=== PATIENT | female | born 1985 | race Caucasian/White ===

== ENCOUNTER 2018-11-10 18:45 | Inpatient (IN) ==
--- NOTE | 2018-11-10 19:52 | Emergency Department Note ---
Disposition Clinical Impression: Suicidal ideation UTI (urinary tract infection) Qualifiers: Urinary tract infection type: acute cystitis Hematuria presence: without he maturia Qualified Code(s): N30.00 - Acute cystitis without hematuria Depression Qualifiers: Depression Type: unspecified Qualified Code(s): F32.9 - Major depressive disorder, single episode, unspecified Disposition: Still a Patient Referrals: NONE,PCP [Primary Care Provider] - Forms: ED Satisfaction Letter Time of Disposition: 21:25 General Adult HPI - General Chief complaint: ED Psychiatric Symptoms Stated complaint: Anxiety,depression Time Seen by Provider: 11/10/18 19:00 Source: patient Limitations: no limitations Nursing Notes Reviewed: Yes Vital Signs Reviewed: Yes - History of Present Illness HPI Narrative: 33 yo female presents to the emergency department after being dropped off by her boyfriend with a chief complaint of anxiety and depression. Patient states that she relapsed on cocaine and alcohol earlier this week. She also states that she stopped taking her psych medications. She does have waves to obtain her psych medications she just did not have them filled. She states the last time that she used cocaine was yesterday and the last time she had anything to drink was several hours ago. She has been harming herself by cutting her left forearm and has felt suicidal at times. She has no clear-cut plan but states that she sometimes thinks about cutting her wrist or taking her pills to end her life. She does not have any homicidal ideations. She thinks that she has had some hallucinations both while doing cocaine and whenever she is off her psych medications but she is unsure. She denies any symptoms of recent illnesses and wants help getting back on track with her psych medications. Pain Scale: 0 - Related Data Home Medications Medication Instructions Recorded Confirmed Buprenorphine HCl/Naloxone HCl 1 each SL BID 11/10/18 11/10/18 [Suboxone 8 mg-2 mg Sl Film] Buspirone HCl [Buspar] 10 mg PO BID 11/10/18 11/10/18 Escitalopram [Lexapro] 20 mg PO DAILY 11/10/18 11/10/18 Gabapentin [Neurontin] 300 mg PO TID 11/10/18 11/10/18 HydrOXYzine 5 mg PO HS 11/10/18 11/10/18 Allergies Allergy/AdvReac Type Severity Reaction Status Date / Time No Known Allergies Allergy Verified 06/04/18 17:35 All systems ED: reviewed and negative except as stated. Review of Systems: As Per HPI Constitutional: Denies: fever, chills, weakness Cardiovascular: Denies: chest pain, palpitations, dyspnea on exertion Respiratory: Denies: cough, dyspnea, wheezes Gastrointestinal: Denies: abdominal pain, nausea, vomiting, diarrhea Genitourinary: Denies: dysuria, hematuria Musculoskeletal: Denies: back pain Integumentary: Denies: rash Psychiatric: Reports: anxiety, depression, suicidal thoughts Endocrine: Reports: fatigue Past Medical History - Past Medical History Medical history: Reports: no medical history Psychiatric history: Reports: bipolar, depression - Social History Smoking Status: Current every day smoker Smokeless Tobacco Status: No Alcohol use: Reports: occasionally, recent Drug use: Reports: cocaine Physical Exam - General Limitations: no limitations General appearance: appears intoxicated, anxious, other (tearful during exam) - Head Head exam: atraumatic, normocephalic - Eye Eye exam: Present: EOMI, miosis - ENT ENT exam: normal exam, mucous membranes moist - Neck Neck exam: Present: normal inspection. Absent: tenderness, lymphadenopathy - Chest Chest inspection: Present: normal inspection. Absent: tenderness - Respiratory Respiratory exam: Present: normal lung sounds bilaterally - Cardiovascular Cardiovascular exam: Present: normal rhythm, tachycardia - Abdominal Exam Abdominal exam: Present: soft, Non-Tender. Absent: distention, guarding, rebound, rigidity - Neurological Exam Neurological exam: Present: alert, oriented X3 - Psychiatric Psychiatric exam: Present: depressed, agitated, suicidal ideation - Skin Skin exam: Present: warm, dry, other (linear shallow cuts on left upper extremities) Course Vital Signs Temperature 97.9 F 11/10/18 18:49 Pulse Rate 109 11/10/18 18:49 Respiratory Rate 22 11/10/18 18:49 Blood Pressure 139/77 11/10/18 18:49 O2 Sat by Pulse Oximetry 100 11/10/18 18:49 Temperature 97.9 F 11/10/18 19:11 Pulse Rate 109 11/10/18 19:11 Respiratory Rate 22 11/10/18 19:11 Blood Pressure 139/77 11/10/18 19:11 O2 Sat by Pulse Oximetry 100 11/10/18 19:11 Oxygen Delivery Oxygen Delivery Room Air Medical Decision Making - MDM Narrative Medical decision making narrative: Pt presents in an obviously intoxicated state, tearful, stating she wants help getting back on track for her psych meds. We will obtain psych clearance labs and once sober, call 1A for evaluation. Pt labwork demonstrates mild alcohol intoxication and was positive for cocaine. Her urine was positive for bacteria and nitrites, therefore we will give her a dose of keflex. 1A has been called. She will be signed out to Dr. Shah for completion of her care. - Medical Records Medical records reviewed: Yes I reviewed the patient's medical records. - Lab Data Lab results reviewed: Yes I reviewed the patient's lab results. Result diagrams: 11/10/18 20:06 11/10/18 20:06 Lab Results 11/10/18 11/10/18 11/10/18 Range/Units 19:00 19:37 19:37 WBC (4.3-11.1) K/mcL RBC (3.82-4.97) M/mcL Hgb (11.5-15.4) g/dL Hct (35.3-44.9) % MCV (83.0-100.0) fL MCH (28.0-33.3) pg MCHC (31.6-35.5) g/dL RDW (11.5-14.5) % Plt Count (140-400) K/mcL MPV (9.4-12.4) fL Immature Gran % (0-4) % Seg Neutrophils % % Lymphocytes % % Monocytes % % Eosinophils % % Basophils % % Neutrophils # (1.6-8.9) K/mcL Lymphocytes # (0.6-4.6) K/mcL Monocytes # (0.0-1.3) K/mcL Eosinophils # (0.0-0.6) K/mcL Basophils # (0.0-0.2) K/mcL Sodium (136-145) mEq/L Potassium (3.5-5.1) mEq/L Chloride (98-107) mEq/L Carbon Dioxide (23-29) mEq/L BUN (6-20) mg/dL Creatinine (0.60-1.20) mg/dL Est GFR ( Amer) (> 60) Est GFR (Non-Af Amer) (> 60) BUN/Creatinine Ratio (6-26) Glucose (70-105) mg/dL Calculated Osmolality (280-300) Calcium (8.6-10.3) mg/dL Urine Color Yellow (Yellow) Urine Clarity Cloudy A (Clear) Urine pH 5.5 (5.0-8.0) pH Units Ur Specific [place] 1.014 (1.010-1.025) Urine Protein Negative (Neg-Trace) mg/dL Urine Glucose (UA) Normal (Normal) mg/dL Urine Ketones Negative (Negative) mg/dL Urine Blood Negative (Negative) Urine Nitrite Positive A (Negative) Urine Bilirubin Negative (Negative) Urine Urobilinogen Normal (Normal) mg/dL Ur Leukocyte Esterase Negative (Negative) Urine Microscopic RBC 0-3 (0-3) per hpf Urine Microscopic WBC 0-3 (0-3) per hpf Ur Squamous Epith Cells Moderate H (None-Few) per lpf Urine Bacteria Moderate H (None-Few) per hpf Hyaline Casts None Seen (None-Few) per lpf Urine Test Negative (Negative) Salicylates (15.0-30.0) mg/dL Urine Opiates Screen Negative (Cnodlr=935) ng/mL Acetaminophen (10-20) mcg/mL Ur Barbiturates Screen Negative (Kbwodx=372) ng/mL Ur Phencyclidine Scrn Negative (Cutoff=25) ng/mL Ur Amphetamines Screen Negative (Vrbjui=0580) ng/mL U Benzodiazepines Scrn Negative (Hcsuwa=568) ng/mL Urine Cocaine Screen Positive H (Cutoff= 300) ng/mL U Marijuana (THC) Screen Negative (Cutoff = 50) ng/mL Ur Drug Screen Interp See Below Ethyl Alcohol (Less than 10) mg/dL 11/10/18 11/10/18 Range/Units 20:06 20:06 WBC 8.7 (4.3-11.1) K/mcL RBC 4.25 (3.82-4.97) M/mcL Hgb 13.2 (11.5-15.4) g/dL Hct 38.5 (35.3-44.9) % MCV 90.6 (83.0-100.0) fL MCH 31.1 (28.0-33.3) pg MCHC 34.3 (31.6-35.5) g/dL RDW 12.4 (11.5-14.5) % Plt Count 284 (140-400) K/mcL MPV 9.3 L (9.4-12.4) fL Immature Gran % 0.2 (0-4) % Seg Neutrophils % 53.4 % Lymphocytes % 33.0 % Monocytes % 10.1 % Eosinophils % 2.8 % Basophils % 0.5 % Neutrophils # 4.7 (1.6-8.9) K/mcL Lymphocytes # 2.9 (0.6-4.6) K/mcL Monocytes # 0.9 (0.0-1.3) K/mcL Eosinophils # 0.2 (0.0-0.6) K/mcL Basophils # 0.0 (0.0-0.2) K/mcL Sodium 140 (136-145) mEq/L Potassium 3.5 (3.5-5.1) mEq/L Chloride 107 (98-107) mEq/L Carbon Dioxide 24 (23-29) mEq/L BUN 15 (6-20) mg/dL Creatinine 0.60 (0.60-1.20) mg/dL Est GFR ( Amer) > 60 (> 60) Est GFR (Non-Af Amer) > 60 (> 60) BUN/Creatinine Ratio 25 (6-26) Glucose 83 (70-105) mg/dL Calculated Osmolality 290 (280-300) Calcium 9.1 (8.6-10.3) mg/dL Urine Color (Yellow) Urine Clarity (Clear) Urine pH (5.0-8.0) pH Units Ur Specific [place] (1.010-1.025) Urine Protein (Neg-Trace) mg/dL Urine Glucose (UA) (Normal) mg/dL Urine Ketones (Negative) mg/dL Urine Blood (Negative) Urine Nitrite (Negative) Urine Bilirubin (Negative) Urine Urobilinogen (Normal) mg/dL Ur Leukocyte Esterase (Negative) Urine Microscopic RBC (0-3) per hpf Urine Microscopic WBC (0-3) per hpf Ur Squamous Epith Cells (None-Few) per lpf Urine Bacteria (None-Few) per hpf Hyaline Casts (None-Few) per lpf Urine Test (Negative) Salicylates < 2.5 L (15.0-30.0) mg/dL Urine Opiates Screen (Imxxcz=994) ng/mL Acetaminophen < 10 L (10-20) mcg/mL Ur Barbiturates Screen (Rwylgk=789) ng/mL Ur Phencyclidine Scrn (Cutoff=25) ng/mL Ur Amphetamines Screen (Thtxmq=1379) ng/mL U Benzodiazepines Scrn (Dslrcw=473) ng/mL Urine Cocaine Screen (Cutoff= 300) ng/mL U Marijuana (THC) Screen (Cutoff = 50) ng/mL Ur Drug Screen Interp Ethyl Alcohol 32 H (Less than 10) mg/dL
--- NOTE | 2018-11-10 20:08 | Emergency Department Note ---
Disposition Clinical Impression: Suicidal ideation UTI (urinary tract infection) Qualifiers: Urinary tract infection type: acute cystitis Hematuria presence: without he maturia Qualified Code(s): N30.00 - Acute cystitis without hematuria Depression Qualifiers: Depression Type: unspecified Qualified Code(s): F32.9 - Major depressive disorder, single episode, unspecified Disposition: Admitted As Inpatient Condition: Fair Referrals: NONE,PCP [Primary Care Provider] - Forms: ED Satisfaction Letter General Adult HPI - General Chief complaint: ED Psychiatric Symptoms Stated complaint: Anxiety,depression Time Seen by Provider: 11/10/18 19:00 Source: patient Limitations: no limitations - History of Present Illness Pain Scale: 0 - Related Data Home Medications Medication Instructions Recorded Confirmed Buprenorphine HCl/Naloxone HCl 1 each SL BID 11/10/18 11/10/18 [Suboxone 8 mg-2 mg Sl Film] Buspirone HCl [Buspar] 10 mg PO BID 11/10/18 11/10/18 Escitalopram [Lexapro] 20 mg PO DAILY 11/10/18 11/10/18 Gabapentin [Neurontin] 300 mg PO TID 11/10/18 11/10/18 HydrOXYzine 5 mg PO HS 11/10/18 11/10/18 Allergies Allergy/AdvReac Type Severity Reaction Status Date / Time No Known Allergies Allergy Verified 06/04/18 17:35 Constitutional: Denies: fever, chills, weakness Cardiovascular: Denies: chest pain, palpitations, dyspnea on exertion Respiratory: Denies: cough, dyspnea, wheezes Gastrointestinal: Denies: abdominal pain, nausea, vomiting, diarrhea Genitourinary: Denies: dysuria, hematuria Musculoskeletal: Denies: back pain Integumentary: Denies: rash Psychiatric: Reports: anxiety, depression, suicidal thoughts Endocrine: Reports: fatigue Past Medical History - Past Medical History Medical history: Reports: no medical history Psychiatric history: Reports: bipolar, depression - Social History Smoking Status: Current every day smoker Smokeless Tobacco Status: No Alcohol use: Reports: occasionally, recent Drug use: Reports: cocaine Physical Exam - General Limitations: no limitations General appearance: appears intoxicated, anxious, other (tearful during exam) Course Vital Signs Temperature 97.9 F 11/10/18 18:49 Pulse Rate 109 11/10/18 18:49 Respiratory Rate 22 11/10/18 18:49 Blood Pressure 139/77 11/10/18 18:49 O2 Sat by Pulse Oximetry 100 11/10/18 18:49 Temperature 97.9 F 11/10/18 19:11 Pulse Rate 73 11/10/18 23:01 Respiratory Rate 16 11/10/18 23:01 Blood Pressure 99/65 11/10/18 23:01 O2 Sat by Pulse Oximetry 98 11/10/18 23:01 Oxygen Delivery Oxygen Delivery Room Air Medical Decision Making - Lab Data Result diagrams: 11/10/18 20:06 11/10/18 20:06 Lab Results 11/10/18 11/10/18 11/10/18 Range/Units 19:00 19:37 19:37 WBC (4.3-11.1) K/mcL RBC (3.82-4.97) M/mcL Hgb (11.5-15.4) g/dL Hct (35.3-44.9) % MCV (83.0-100.0) fL MCH (28.0-33.3) pg MCHC (31.6-35.5) g/dL RDW (11.5-14.5) % Plt Count (140-400) K/mcL MPV (9.4-12.4) fL Immature Gran % (0-4) % Seg Neutrophils % % Lymphocytes % % Monocytes % % Eosinophils % % Basophils % % Neutrophils # (1.6-8.9) K/mcL Lymphocytes # (0.6-4.6) K/mcL Monocytes # (0.0-1.3) K/mcL Eosinophils # (0.0-0.6) K/mcL Basophils # (0.0-0.2) K/mcL Sodium (136-145) mEq/L Potassium (3.5-5.1) mEq/L Chloride (98-107) mEq/L Carbon Dioxide (23-29) mEq/L BUN (6-20) mg/dL Creatinine (0.60-1.20) mg/dL Est GFR ( Amer) (> 60) Est GFR (Non-Af Amer) (> 60) BUN/Creatinine Ratio (6-26) Glucose (70-105) mg/dL Calculated Osmolality (280-300) Calcium (8.6-10.3) mg/dL Urine Color Yellow (Yellow) Urine Clarity Cloudy A (Clear) Urine pH 5.5 (5.0-8.0) pH Units Ur Specific [place] 1.014 (1.010-1.025) Urine Protein Negative (Neg-Trace) mg/dL Urine Glucose (UA) Normal (Normal) mg/dL Urine Ketones Negative (Negative) mg/dL Urine Blood Negative (Negative) Urine Nitrite Positive A (Negative) Urine Bilirubin Negative (Negative) Urine Urobilinogen Normal (Normal) mg/dL Ur Leukocyte Esterase Negative (Negative) Urine Microscopic RBC 0-3 (0-3) per hpf Urine Microscopic WBC 0-3 (0-3) per hpf Ur Squamous Epith Cells Moderate H (None-Few) per lpf Urine Bacteria Moderate H (None-Few) per hpf Hyaline Casts None Seen (None-Few) per lpf Urine Test Negative (Negative) Salicylates (15.0-30.0) mg/dL Urine Opiates Screen Negative (Zustbg=488) ng/mL Acetaminophen (10-20) mcg/mL Ur Barbiturates Screen Negative (Euouxo=817) ng/mL Ur Phencyclidine Scrn Negative (Cutoff=25) ng/mL Ur Amphetamines Screen Negative (Hqxmkq=1396) ng/mL U Benzodiazepines Scrn Negative (Esoaii=318) ng/mL Urine Cocaine Screen Positive H (Cutoff= 300) ng/mL U Marijuana (THC) Screen Negative (Cutoff = 50) ng/mL Ur Drug Screen Interp See Below Ethyl Alcohol (Less than 10) mg/dL 11/10/18 11/10/18 Range/Units 20:06 20:06 WBC 8.7 (4.3-11.1) K/mcL RBC 4.25 (3.82-4.97) M/mcL Hgb 13.2 (11.5-15.4) g/dL Hct 38.5 (35.3-44.9) % MCV 90.6 (83.0-100.0) fL MCH 31.1 (28.0-33.3) pg MCHC 34.3 (31.6-35.5) g/dL RDW 12.4 (11.5-14.5) % Plt Count 284 (140-400) K/mcL MPV 9.3 L (9.4-12.4) fL Immature Gran % 0.2 (0-4) % Seg Neutrophils % 53.4 % Lymphocytes % 33.0 % Monocytes % 10.1 % Eosinophils % 2.8 % Basophils % 0.5 % Neutrophils # 4.7 (1.6-8.9) K/mcL Lymphocytes # 2.9 (0.6-4.6) K/mcL Monocytes # 0.9 (0.0-1.3) K/mcL Eosinophils # 0.2 (0.0-0.6) K/mcL Basophils # 0.0 (0.0-0.2) K/mcL Sodium 140 (136-145) mEq/L Potassium 3.5 (3.5-5.1) mEq/L Chloride 107 (98-107) mEq/L Carbon Dioxide 24 (23-29) mEq/L BUN 15 (6-20) mg/dL Creatinine 0.60 (0.60-1.20) mg/dL Est GFR ( Amer) > 60 (> 60) Est GFR (Non-Af Amer) > 60 (> 60) BUN/Creatinine Ratio 25 (6-26) Glucose 83 (70-105) mg/dL Calculated Osmolality 290 (280-300) Calcium 9.1 (8.6-10.3) mg/dL Urine Color (Yellow) Urine Clarity (Clear) Urine pH (5.0-8.0) pH Units Ur Specific [place] (1.010-1.025) Urine Protein (Neg-Trace) mg/dL Urine Glucose (UA) (Normal) mg/dL Urine Ketones (Negative) mg/dL Urine Blood (Negative) Urine Nitrite (Negative) Urine Bilirubin (Negative) Urine Urobilinogen (Normal) mg/dL Ur Leukocyte Esterase (Negative) Urine Microscopic RBC (0-3) per hpf Urine Microscopic WBC (0-3) per hpf Ur Squamous Epith Cells (None-Few) per lpf Urine Bacteria (None-Few) per hpf Hyaline Casts (None-Few) per lpf Urine Test (Negative) Salicylates < 2.5 L (15.0-30.0) mg/dL Urine Opiates Screen (Nlbtpz=874) ng/mL Acetaminophen < 10 L (10-20) mcg/mL Ur Barbiturates Screen (Nilvez=090) ng/mL Ur Phencyclidine Scrn (Cutoff=25) ng/mL Ur Amphetamines Screen (Mhvnio=6921) ng/mL U Benzodiazepines Scrn (Obxmuc=368) ng/mL Urine Cocaine Screen (Cutoff= 300) ng/mL U Marijuana (THC) Screen (Cutoff = 50) ng/mL Ur Drug Screen Interp Ethyl Alcohol 32 H (Less than 10) mg/dL Attestation Statement - Attestation Attestation: I examined this patient and my medical decision-making was reviewed with the Resident Physician. I agree with the documented findings, disposition and treatment plan as described except to the extent set forth below. Patient denies any medical complaints. Has some superficial cuts on her left forearm, last tetanus fewer than 10 years ago. Clinically intoxicated, which will delay psychiatric evaluation.
[2018-11-10 20:17] LABS: Basophils % 0.5 %; Eosinophils # 0.2 K/mcL (0.0-0.6); Eosinophils % 2.8 %; Hematocrit 38.5 % (35.3-44.9); Hemoglobin 13.2 g/dL (11.5-15.4); Immature Granulocytes % 0.2 % (0-4); Lymphocytes # 2.9 K/mcL (0.6-4.6); Mean Corpuscular HGB Conc 34.3 g/dL (31.6-35.5); Mean Corpuscular Hemoglobin 31.1 pg (28.0-33.3); Mean Corpuscular Volume 90.6 fL (83.0-100.0); Mean Platelet Volume 9.3 fL (9.4-12.4); Monocytes # 0.9 K/mcL (0.0-1.3); Monocytes % 10.1 %; Neutrophils # 4.7 K/mcL (1.6-8.9); Platelet Count 284 K/mcL (140-400); Red Blood Count 4.25 M/mcL (3.82-4.97); Red Cell Distribution Width 12.4 % (11.5-14.5); Segmented Neutrophils % 53.4 %
[2018-11-10 20:18] LABS: Bilirubin,Urine Negative (Negative); Blood,Urine Negative (Negative); Clarity,Urine Cloudy (Clear); Color,Urine Yellow (Yellow); Glucose,Urine (UA) Normal (Normal); Ketones,Urine Negative (Negative); Leukocyte Esterase,Urine Negative (Negative); Nitrite,Urine Positive (Negative); PH,Urine 5.5 pH Units (5.0-8.0); Protein,Urine Negative (Neg-Trace); Specific Gravity,Urine 1.014 (1.010-1.025); Urobilinogen,Urine Normal (Normal)
[2018-11-10 20:20] LABS: Bacteria,Urine Moderate per hpf (None-Few); Hyaline Casts,Urine None Seen per lpf (None-Few); RBC,Urine 0-3 per hpf (0-3); Squamous Epithelial Cell,Urine Moderate per lpf (None-Few); WBC,Urine 0-3 per hpf (0-3)
[2018-11-10 20:30] LABS: Amphetamine Screen,Urine Negative ng/mL (Cutoff=1000); Barbiturate Screen,Urine Negative ng/mL (Cutoff=200); Benzodiazepines Screen,Urine Negative ng/mL (Cutoff=200); Cannabinoid Screen,Urine Negative ng/mL (Cutoff = 50); Cocaine Screen,Urine Positive ng/mL (Cutoff= 300); Opiate Screen,Urine Negative ng/mL (Cutoff=300); Phencyclidine Screen,Urine Negative ng/mL (Cutoff=25)
[2018-11-10 20:39] LABS: Acetaminophen < 10 mcg/mL (10-20); BUN/Creatinine Ratio 25 (6-26); Blood Urea Nitrogen 15 mg/dL (6-20); Calcium 9.1 mg/dL (8.6-10.3); Carbon Dioxide 24 mEq/L (23-29); Chloride 107 mEq/L (98-107); Ethanol 32 mg/dL (Less than 10); Glucose 83 mg/dL (70-105); Osmolality,Calculated 290 (280-300); Potassium 3.5 mEq/L (3.5-5.1); Salicylate < 2.5 mg/dL (15.0-30.0); Sodium 140 mEq/L (136-145); eGFR For Non-African Americans > 60 (> 60)
[2018-11-10] MEDS ORDERED: cephALEXin 250 MG CAPSULE PO STA (21:10)
[2018-11-11] MEDS ORDERED: Haloperidol Lactate 5 MG/ML VIAL IM PRN (00:28)
[2018-11-11] MEDS ORDERED: traZODone 50 MG TABLET PO PRN (00:28)
[2018-11-11] MEDS ORDERED: Mag Hydrox/Al Hydrox/Simeth 30 ML UDC PO PRN (00:28)
[2018-11-11] MEDS ORDERED: hydrOXYzine pamoate 25 MG CAPSULE PO PRN (00:28)
[2018-11-11] MEDS ORDERED: MOM Conc 10 ML UD.LIQ PO PRN (00:28)
[2018-11-11] MEDS ORDERED: *HR* LORazepam 2 MG/ML VIAL IM PRN (00:28)
[2018-11-11] MEDS ORDERED: *HR* LORazepam 1 MG TABLET PO PRN (00:28)
[2018-11-11] MEDS: Nicotine 21 MG PATCH.TD24 TD SCH (09:26)
[2018-11-11] MEDS: cephALEXin 500 MG CAPSULE PO SCH ×2 (09:26→21:05)
--- NOTE | 2018-11-11 10:54 | Psychiatry History & Physical ---
Date of Encounter: 11/11/18 Time of Encounter: 10:00 History of Present Illness Patient Stated Chief Complaint: depression and "needed to get away" Medicare Admission Attestation: For traditional Medicare patients the provided hospital inpatient services are reasonable and necessary and in the case of services not specified as inpatient-only under 42 CFR 419.22 (n), that they are appropriately provided as inpatient services in accordance 42 CFR 412.3. For Critical [facility] the patient may reasonably be expected to be discharged or transferred to a hospital within 96 hours after admission to the Critical Access Hospital. Admitted From: Emergency Dept Plans for Post Hospital Care: Home History of Present Illness: Ms. Go is a 33 year old female with a history of bipolar disorder who was admitted with suicidal ideation with a plan. Patient wanted to "eat pills "to end her life. Prior to coming to the ED, she cut her arms and legs with a knife. Her left arm has 20+ cuts on it that do not appear to be infected or indurated. Patient reports that she was sober (from cocaine and opiates) for two years until this past May when she relapsed. After her relapse, she was placed on Suboxone and remained sober until four days ago when she started to use cocaine. She denies taking opiates at this time other than her prescribed Suboxone. She has spent her morning trying to get ahold of her boyfriend so that he can bring in her Suboxone bottle, as she has missed her last two doses and is worried about going into withdrawal. Her last dose was yesterday morning. She also gets buspirone, hydroxyzine, gabapentin, and escitalopram from her psychiatrist, Dr. Carmel Green (this provider cannot find this psychiatrist online). Patient reports that has attempted suicide in the past three times, but states that they were not "really attempts." At those times, she tried to overdose on her hydroxyzine and buspirone. Yesterday was the first time that the she cut herself. Denies burning herself. She denies a family history of suicide, but does report that her father has schizophrenia. Currently denies suicidal and homicidal ideation. Reports diminished appetite and poor sleep. Currently denies auditory and visual hallucinations. She currently rates her depression as 7/10 on a 0-10 scale with 0 being none and 10 being the worst. She rates her anxiety as 8/10 and pain in her hands as 7/10 on this same scale. She is having pain and swelling in her bilateral hands. She reports that this is intermittent, but chronic. Patient was found to have a UTI while in the ED, but is denying burning with urination, blood in her urine, and itching. Past Med Surg Social Fam HX - Past Medical History Source: patient, old records reviewed Medical history: no medical history, hepatitis - Past Psychiatric History Psychiatric history: Reports: bipolar, prior suicide attempt Past psychiatric history details: This is the patient's first inpatient psychiatric admission. She has a diagnosis of bipolar disorder. She is currently taking Lexapro, gabapentin, Buspar, and hydroxyzine. She also takes Suboxone BID from her psychiatrist. Patient has had three prior suicide attempts, as mentioned in the HPI. Each of these was an attempt to overdose on Buspar and hydroxyzine. She denies any family history of suicide. Family psychiatric history: Yes Family Psychiatric History Details: Father with schizophrenia. Family History of Suicide: None - Social History Smoking Status: Current every day smoker Packs per day: 1 1/2 Smokeless Tobacco Status: No Alcohol use: heavy (reports drinking a "couple" of beers per day), recent (0.32 blood alcohol level on admission) Drug use: cocaine, opiates Additional substance use detail: Prior to admission, patient had been using cocaine daily for 4 days, along with her prescribed Suboxone. She struggled with opiate addiction in the past and was sober for two years prior to May 2018. She relapsed on 2017, but then got treatment for her addiction and started Suboxone. She takes her Suboxone twice a day and never misses a dose. However, due to her admission, she missed her doses last night and this morning. Patient has hepatitis C from IV drug use. She states that she has not used IV drugs in a few years. When she relapsed last May and used heroin, she snorted. Patient admits to drinking "a couple of" beers per day. It seems the patient is minimizing her alcohol use, given her high blood alcohol level in the emergency department. Occupational status: employed Current living situation: Home Activity Level: Independent ambulation Additional social history: Patient was raised by her mother and father and states that her childhood was "okay." She graduated high school and then went to cosmetology school, and currently works as a hairdresser. She lives with her boyfriend, but reports that they don't always get along. She has a 13-year-old daughter that lives with her. She describes herself as Orthodox, and reports that it is important to her. She reports having no hobbies because she spends her time going to group a [employer] in [place], [place] and working. She is currently on probation. She was in [facility], and then received an arson charge because she was "popping a socket" while in [employer] to light a cigarette. Her chief growth officer is Jassi Ríos. Medications & Allergies Buprenorphine HCl/Naloxone HCl [Suboxone 8 mg-2 mg Sl Film] 2 each SL DAILY 11/10/18 [History] Buspirone HCl [Buspar] 10 mg PO BID 11/10/18 [History] Escitalopram [Lexapro] 20 mg PO DAILY 11/10/18 [History] Gabapentin [Neurontin] 300 mg PO TID 11/10/18 [History] HydrOXYzine 5 - 10 mg PO DAILY PRN 11/10/18 [History] Allergy/AdvReac Type Severity Reaction Status Date / Time No Known Allergies Allergy Verified 06/04/18 17:35 Review of Systems Musculoskeletal: Reports: other (pain in bilateral hands) Psychiatric: Reports: depression, anxiety, abnormal sleep pattern, change in appetite. Denies: suicidal ideation, homicidal ideation, auditory hallucinations, visual hallucinations Exam - HEENT Head exam IM: Present: normal inspection Eye exam IM: Present: EOMI, normal appearance - Neurological Neurological exam: Absent: facial droop - Respiratory Respiratory exam IM: Absent: accessory muscle use, respiratory distress - Extremities Extremities exam IM: Present: joint swelling (bilateral hand erythema, edema, and tenderness) - Skin Skin exam IM: Present: erythema (bilateral hands) - Constitutional Vitals: Temp Pulse Resp BP Pulse Ox 98.4 F 54 16 95/61 98 11/11/18 09:00 11/11/18 09:00 11/11/18 09:00 11/11/18 09:00 11/11/18 09:00 General appearance: age & developmentally appropriate, unkempt, average Additional observations: Appears very tired. Was interviewed in bed and had eyes closed throughout most of the interaction. Fell asleep twice during interview and had to be aroused to finish answering questions. - Musculoskeletal Gait: normal, slow Station: relaxed Strength & Tone: normal for patient - Psychiatric Patient Orientation: Yes Person, Yes Time, Yes Place, Yes Circumstance Level of alertness: Follows commands, Other (alert, but tired) Behavior: calm, tearful (Patient is tearful about not having received her Suboxone), withdrawn Psychomotor activity: Normal Eye Contact: Minimal Contact Mood Description: Depressed Patient description of mood: "depressed" Affect description: congruent with mood, constricted Speech Volume: Soft/Quiet Speech pattern: normal rate, normal rhythm, normal tone Language & Vocabulary: consistent with education Thought Process: Intact, Linear Thought Content: Yes Intact, No Suicidal ideation, No Homicidal ideation Perceptual Disturbances: No Reacting to internal stimuli, No Auditory hallucinations, No Visual hallucinations Attention Span Ability: Unable to Focus Memory Description: Grossly Intact Patient Reliability: Reliable Historian Fund of knowledge: Yes average Intelligence Estimate: Average Judgment: Fair Insight: Partial Results - Drug Levels and Toxicology Drug Levels and Toxicology: Drug Levels and Toxicity 11/10/18 11/10/18 19:37 20:06 Urine Opiates Screen Negative Acetaminophen < 10 L Ur Barbiturates Screen Negative Ur Phencyclidine Scrn Negative Ur Amphetamines Screen Negative U Benzodiazepines Scrn Negative Urine Cocaine Screen Positive H U Marijuana (THC) Screen Negative Ethyl Alcohol 32 H - Labs Labs: Laboratory Last Values WBC 8.7 K/mcL (4.3-11.1) 11/10/18 20:06 RBC 4.25 M/mcL (3.82-4.97) 11/10/18 20:06 Hgb 13.2 g/dL (11.5-15.4) 11/10/18 20:06 Hct 38.5 % (35.3-44.9) 11/10/18 20:06 MCV 90.6 fL (83.0-100.0) 11/10/18 20:06 MCH 31.1 pg (28.0-33.3) 11/10/18 20:06 MCHC 34.3 g/dL (31.6-35.5) 11/10/18 20:06 RDW 12.4 % (11.5-14.5) 11/10/18 20:06 Plt Count 284 K/mcL (140-400) 11/10/18 20:06 MPV 9.3 fL (9.4-12.4) L 11/10/18 20:06 Immature Gran % 0.2 % (0-4) 11/10/18 20:06 Seg Neutrophils % 53.4 % 11/10/18 20:06 Lymphocytes % 33.0 % 11/10/18 20:06 Monocytes % 10.1 % 11/10/18 20:06 Eosinophils % 2.8 % 11/10/18 20:06 Basophils % 0.5 % 11/10/18 20:06 Neutrophils # 4.7 K/mcL (1.6-8.9) 11/10/18 20:06 Lymphocytes # 2.9 K/mcL (0.6-4.6) 11/10/18 20:06 Monocytes # 0.9 K/mcL (0.0-1.3) 11/10/18 20:06 Eosinophils # 0.2 K/mcL (0.0-0.6) 11/10/18 20:06 Basophils # 0.0 K/mcL (0.0-0.2) 11/10/18 20:06 Sodium 140 mEq/L (136-145) 11/10/18 20:06 Potassium 3.5 mEq/L (3.5-5.1) 11/10/18 20:06 Chloride 107 mEq/L (98-107) 11/10/18 20:06 Carbon Dioxide 24 mEq/L (23-29) 11/10/18 20:06 BUN 15 mg/dL (6-20) 11/10/18 20:06 Creatinine 0.60 mg/dL (0.60-1.20) 11/10/18 20:06 Est GFR ( Amer) > 60 (> 60) 11/10/18 20:06 Est GFR (Non-Af Amer) > 60 (> 60) 11/10/18 20:06 BUN/Creatinine Ratio 25 (6-26) 11/10/18 20:06 Glucose 83 mg/dL (70-105) 11/10/18 20:06 Calculated Osmolality 290 (280-300) 11/10/18 20:06 Calcium 9.1 mg/dL (8.6-10.3) 11/10/18 20:06 Urine Color Yellow (Yellow) 11/10/18 19:37 Urine Clarity Cloudy (Clear) A 11/10/18 19:37 Urine pH 5.5 pH Units (5.0-8.0) 11/10/18 19:37 Ur Specific Post 1.014 (1.010-1.025) 11/10/18 19:37 Urine Protein Negative mg/dL (Neg-Trace) 11/10/18 19:37 Urine Glucose (UA) Normal mg/dL (Normal) 11/10/18 19:37 Urine Ketones Negative mg/dL (Negative) 11/10/18 19:37 Urine Blood Negative (Negative) 11/10/18 19:37 Urine Nitrite Positive (Negative) A 11/10/18 19:37 Urine Bilirubin Negative (Negative) 11/10/18 19:37 Urine Urobilinogen Normal mg/dL (Normal) 11/10/18 19:37 Ur Leukocyte Esterase Negative (Negative) 11/10/18 19:37 Urine Microscopic RBC 0-3 per hpf (0-3) 11/10/18 19:37 Urine Microscopic WBC 0-3 per hpf (0-3) 11/10/18 19:37 Ur Squamous Epith Cells Moderate per lpf (None-Few) H 11/10/18 19:37 Urine Bacteria Moderate per hpf (None-Few) H 11/10/18 19:37 Hyaline Casts None Seen per lpf (None-Few) 11/10/18 19:37 Urine Test Negative (Negative) 11/10/18 19:00 Salicylates < 2.5 mg/dL (15.0-30.0) L 11/10/18 20:06 Urine Opiates Screen Negative ng/mL (Dueobe=288) 11/10/18 19:37 Acetaminophen < 10 mcg/mL (10-20) L 11/10/18 20:06 Ur Barbiturates Screen Negative ng/mL (Fzkxas=639) 11/10/18 19:37 Ur Phencyclidine Scrn Negative ng/mL (Cutoff=25) 11/10/18 19:37 Ur Amphetamines Screen Negative ng/mL (Qcxvxx=3545) 11/10/18 19:37 U Benzodiazepines Scrn Negative ng/mL (Blxlyw=199) 11/10/18 19:37 Urine Cocaine Screen Positive ng/mL (Cutoff= 300) H 11/10/18 19:37 U Marijuana (THC) Screen Negative ng/mL (Cutoff = 50) 11/10/18 19:37 Ur Drug Screen Interp See Below 11/10/18 19:37 Ethyl Alcohol 32 mg/dL (Less than 10) H 11/10/18 20:06 Assessment and Plan (1) Opiate dependence Current visit: Yes Status: Chronic Plan: Admit inpatient for safety and stabilization, Close observation, Suicide Precautions per unit protocol, Encourage participation in unit milieu, Group Therapy, Monitor sleep, Monitor appetite Additional Plan: 1. Patient currently takes Suboxone BID from her psychiatrist. We will restart this. 2. Recommend the patient continue to follow with treatment facility upon discharge. Risks, benefits, side effects, alternatives discussed w/pt: Yes Patient agr eeable to treatment: Yes Plans for Post Hospital Care: Home Estimated Length of Stay (Days): 3 Qualifiers: Substance use status: uncomplicated Qualified Code(s): F11.20 - Opioid dependence, uncomplicated (2) UTI (urinary tract infection) Current visit: Yes Status: Acute Plan: Close observation Additional Plan: 1. Patient was started on Keflex in the ED. We will continue Keflex 2 times a day. Patient is currently denying symptoms. Risks, benefits, side effects, alternatives discussed w/pt: Yes Patient a greeable to treatment: Yes Plans for Post Hospital Care: Home Estimated Length of Stay (Days): 3 Qualifiers: Urinary tract infection type: acute cystitis Hematuria presence: without hematuria Qualified Code(s): N30.00 - Acute cystitis without hematuria (3) Depression Current visit: Yes Status: Acute Plan: Admit inpatient for safety and stabilization, Close observation, Suicide Precautions per unit protocol, Encourage participation in unit milieu, Group Therapy, Monitor sleep, Monitor appetite Additional Plan: 1. Will continue patient's outpatient medications. These include Lexapro 20 mg, BuSpar 10 mg twice a day, hydroxyzine 25 mg TID PRN. We will also continue Suboxone as mentioned above. 2. Will monitor while on the unit. 3. Continue suicide precautions at this time. 4. Will discharge when more psychiatrically stable. 5. Encourage group participation on the unit. Patient has mostly been retreating to her room. 6. Will work with social work to coordinate outpatient psychiatric care upon discharge. Qualifiers: Depression Type: unspecified Qualified Code(s): F32.9 - Major depressive disorder, single episode, unspecified - Attending Attestation I examined this patient and my medical decision-making was reviewed with the Resident Physician. I agree with the documented findings, disposition and treatment plan as described except to the extent set forth below. Client reports she had been compliant with Lexapro, Buspar, and Vistaril until relapsing on Etoh and Cocaine. Haven these meds were helping her until she started using again a few days ago. Will place her back on these meds and continue her Suboxone as this medication was able to be verified through her provider. Already part of an AOD program which she plans to continue with after discharge.
[2018-11-11] MEDS: *HR* Buprenorphine HCl 8 MG TAB.SUBL SL SCH ×2 (11:42→21:05)
[2018-11-12] MEDS: cephALEXin 500 MG CAPSULE PO SCH ×2 (09:06→20:45)
[2018-11-12] MEDS: *HR* Buprenorphine HCl 8 MG TAB.SUBL SL SCH ×2 (09:06→20:45)
[2018-11-12] MEDS: Nicotine 21 MG PATCH.TD24 TD SCH (09:07)
--- NOTE | 2018-11-12 14:12 | Psychiatry Progress Note ---
Date of Encounter: 11/12/18 Time of Encounter: 10:30 Subjective Interval history: Ms. Go is a 33-year-old female who was admitted with suicidal thoughts. She has been experiencing increased depression and relapsed on cocaine shortly before her admission. Patient did not participate in groups yesterday and spent much of her day sleeping. Today, patient states that her mood is "alright." She does report nightmares last night, but she slept with her nicotine patch on. She states that her appetite "comes and goes." She denies any side effects from her medications. She rates her depression as 8/10 on a 0-10 scale with 0 being none and 10 being the worst. She rates her anxiety as 8/10 and pain in her hands as 7/10 on the same scale. Patient reports that she is following with a physician for her swollen hands. Patient denies homicidal ideation and auditory and visual hallucinations. When asked if she is experiencing suicidal ideation, she responded, "No. I don't know." She does admit to feeling hopeless. Review of Systems Musculoskeletal: Reports: joint swelling (swelling in bilateral hands) Psychiatric: Reports: depression, anxiety, abnormal sleep pattern, change in appetite, hopelessness. Denies: suicidal ideation (Patient responded with "No. I don't know." when asked about suicidal thoughts.), homicidal ideation, auditory hallucinations, visual hallucinations Results - Vital Signs Vital Signs: Temp Pulse Resp BP Pulse Ox 97.2 F L 79 16 108/68 97 11/12/18 09:00 11/12/18 09:00 11/12/18 09:00 11/12/18 09:00 11/12/18 09:00 Assessment and Plan (1) Depression Current visit: Yes Status: Acute Plan: Continue hospitalization, Close observation, Suicide Precautions per unit protocol, Encourage participation in unit milieu, Group Therapy, Monitor sleep, Monitor appetite Additional Plan: 1. Will continue patient's outpatient medications. These include Lexapro 20 mg, BuSpar 10 mg twice a day, hydroxyzine 25 mg TID PRN. We will also continue Suboxone. 2. Will monitor while on the unit. 3. Continue suicide precautions at this time. 4. Will discharge when more psychiatrically stable. 5. Encourage group participation on the unit. Patient did not participate in groups yesterday. She told this provider that her goal for today was to attend some groups, however, she has not been seen by this provider at any group. 6. Will work with social work to coordinate outpatient psychiatric care upon discharge. Risks, benefits, side effects, alternatives discussed w/pt: Yes Patient agreeable to treatment: Yes Qualifiers: Depression Type: unspecified Qualified Code(s): F32.9 - Major depressive disorder, single episode, unspecified (2) Bipolar disorder Current visit: Yes Status: Chronic Plan: Continue hospitalization, Close observation, Suicide Precautions per unit protocol, Encourage participation in unit milieu, Group Therapy, Monitor sleep, Monitor appetite Additional Plan: 1. Patient takes gabapentin as a mood stabilizer as an outpatient. Did not start this medication yesterday on the unit to avoid starting several medications at once. Will today today at 300mg TID. Risks, benefits, side effects, alternatives discussed w/pt: Yes Patient agreeable to treatment: Yes Qualifiers: Active/Remission status: currently active Current bipolar episode type: depressed Current episode severity: severe Psychotic features: without psychotic features Qualified Code(s): F31.4 - Bipolar disorder, current episode depressed, severe, without psychotic features (3) UTI (urinary tract infection) Current visit: Yes Status: Acute Plan: Continue hospitalization, Close observation, Suicide Precautions per unit protocol, Encourage participation in unit milieu, Group Therapy, Monitor sleep, Monitor appetite Additional Plan: 1. Continue Keflex 2 times a day. Risks, benefits, side effects, alternatives discussed w/pt: Yes Patient agreeable to treatment: Yes Qualifiers: Urinary tract infection type: acute cystitis Hematuria presence: without hematuria Qualified Code(s): N30.00 - Acute cystitis without hematuria (4) Opiate dependence Current visit: Yes Status: Chronic Additional Plan: 1. Patient currently takes Suboxone BID from her psychiatrist. Continue while on the unit. 2. Recommend the patient continue to follow with treatment facility upon discharge. Risks, benefits, side effects, alternatives discussed w/pt: Yes Patient agreeable to treatment: Yes Qualifiers: Substance use status: uncomplicated Qualified Code(s): F11.20 - Opioid dependence, uncomplicated (5) Bilateral hand swelling Current visit: Yes Status: Chronic Plan: Continue hospitalization, Close observation, Suicide Precautions per unit protocol, Encourage participation in unit milieu, Group Therapy, Monitor sleep, Monitor appetite Additional Plan: 1. Patient is experiencing bilateral painful hand swelling. She reports that it is intermittently chronic, and follows up with someone as an outpatient. 2. Reports that her gabapentin helps with her hand pain. Gabapentin was restarted today, so hopefully her hand pain improves. Risks, benefits, side effects, alternatives discussed w/pt: Yes Patient agreeable to treatment: Yes Consult Discharge Plan - Plan Referrals: NONE,PCP [Primary Care Provider] - - Attending Attestation I examined this patient and my medical decision-making was reviewed with the Resident Physician. I agree with the documented findings, disposition and treatment plan as described except to the extent set forth below. Client still very depressed. Vague SI without intent or plan at this time. Reports today she learned her 14y/o daughter had to be seen by her Psychiatrist and client is upset about this. However, she reports that she knows she has to take care of herself first before she can be of any help to her daughter. Swelling in hands still present but less so today. 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 Has been following with an outpatient provider for approx a year now but client reports no one has been able to give her a solid diagnosis. Will restart Neurontin today as this is one of her home meds and client reports it works to help control her mood and hand pain. Psychiatry Exam - Constitutional Vitals: Temp Pulse Resp BP Pulse Ox 97.2 F L 79 16 108/68 97 11/12/18 09:00 11/12/18 09:00 11/12/18 09:00 11/12/18 09:00 11/12/18 09:00 General appearance: age & developmentally appropriate, unkempt, average Additional observations: Patient was lying in bed with the lights on when this provider approached. - Musculoskeletal Gait: other (did not assess) Station: other (curled up in bed) - Psychiatric Patient Orientation: Yes Person, Yes Time, Yes Place, Yes Circumstance Level of alertness: Alert Behavior: calm, guarded Psychomotor activity: Normal Eye Contact: Minimal Contact Mood Description: Depressed Patient description of mood: "alright" Affect description: dysphoric Speech Volume: Soft/Quiet Speech pattern: normal rate, normal rhythm, clear, coherent Language & Vocabulary: consistent with education Thought Process: Intact Thought Content: Yes Intact, No Suicidal ideation, No Homicidal ideation Perceptual Disturbances: No Reacting to internal stimuli, No Auditory hallucinations, No Visual hallucinations Attention Span Ability: Capable of Focused Attention Memory Description: Grossly Intact Patient Reliability: Reliable Historian Fund of knowledge: Yes average Intelligence Estimate: Average Judgment: Fair Insight: Partial
[2018-11-12] MEDS: Gabapentin 300 MG CAPSULE PO SCH ×2 (15:00→20:46)
[2018-11-13] MEDS: Nicotine 21 MG PATCH.TD24 TD SCH (09:13)
[2018-11-13] MEDS: *HR* Buprenorphine HCl 8 MG TAB.SUBL SL SCH ×2 (09:14→20:54)
[2018-11-13] MEDS: Gabapentin 300 MG CAPSULE PO SCH ×3 (09:14→20:54)
--- NOTE | 2018-11-13 09:28 | Psychiatry Progress Note ---
Date of Encounter: 11/13/18 Time of Encounter: 09:24 Subjective Interval history: Looking much better. Still struggling with depression and suicidal thoughts off and on but clearly improved. Much brighter affect. More conversant. Wanting to shower and do things for herself this morning. Hands are less swollen and physical pain is less. Has been sleeping a lot. Attended some groups yesterday but feeling more able to be out of bed today. Acuity on unit is less today so client states she intends to be out of her room more. Has a plan to have her mother and a friend stay with her over the weekend so she will feel safe going home. Not quite ready to leave the hospital but likely discharge tomorrow or Saturday. Already part of the [facility] for rehab. Suboxone has controlled cravings and client denying wanting to use. Review of Systems Constitutional: Denies: fever, chills, weakness, weight change Eyes: Denies: eye pain, vision change Ears, Nose, Throat: Denies: ear pain, throat pain, dental pain, hearing loss, congestion Cardiovascular: Denies: chest pain, palpitations, dyspnea on exertion Respiratory: Denies: cough, dyspnea, wheezes Gastrointestinal: Denies: abdominal pain, nausea, vomiting, diarrhea, constipation Musculoskeletal: Reports: joint swelling, joint pain Neurological: Denies: headache, weakness, numbness, memory loss Psychiatric: Reports: depression, anxiety, abnormal sleep pattern, change in appetite, hopelessness. Denies: suicidal ideation (Patient responded with "No. I don't know." when asked about suicidal thoughts.), homicidal ideation, auditory hallucinations, visual hallucinations Results - Vital Signs Vital Signs: Temp Pulse Resp BP Pulse Ox 98.1 F 63 16 105/65 97 11/12/18 21:00 11/12/18 21:00 11/12/18 21:00 11/12/18 21:00 11/12/18 21:00 Assessment and Plan (1) Depression Current visit: Yes Status: Acute Plan: Continue hospitalization, Close observation, Suicide Precautions per unit protocol, Encourage participation in unit milieu, Group Therapy, Monitor sleep, Monitor appetite Risks, benefits, side effects, alternatives discussed w/pt: Yes Patient agreeable to treatment: Yes Qualifiers: Depression Type: unspecified Qualified Code(s): F32.9 - Major depressive disorder, single episode, unspecified (2) Bipolar disorder Current visit: Yes Status: Chronic Plan: Continue hospitalization, Close observation, Suicide Precautions per unit protocol, Encourage participation in unit milieu, Group Therapy, Monitor sleep, Monitor appetite Risks, benefits, side effects, alternatives discussed w/pt: Yes Patient agreeable to treatment: Yes Qualifiers: Active/Remission status: currently active Current bipolar episode type: depressed Current episode severity: severe Psychotic features: without psychotic features Qualified Code(s): F31.4 - Bipolar disorder, current episode depressed, severe, without psychotic features (3) UTI (urinary tract infection) Current visit: Yes Status: Acute Plan: Continue hospitalization, Close observation, Suicide Precautions per unit protocol, Encourage participation in unit milieu, Group Therapy, Monitor sleep, Monitor appetite Risks, benefits, side effects, alternatives discussed w/pt: Yes Patient agreeable to treatment: Yes Qualifiers: Urinary tract infection type: acute cystitis Hematuria presence: without hematuria Qualified Code(s): N30.00 - Acute cystitis without hematuria (4) Opiate dependence Current visit: Yes Status: Chronic Plan: Continue hospitalization, Close observation, Suicide Precautions per unit protocol, Encourage participation in unit milieu, Group Therapy, Monitor sleep, Monitor appetite Risks, benefits, side effects, alternatives discussed w/pt: Yes Patient agreeable to treatment: Yes Qualifiers: Substance use status: uncomplicated Qualified Code(s): F11.20 - Opioid dependence, uncomplicated (5) Bilateral hand swelling Current visit: Yes Status: Chronic Plan: Continue hospitalization, Close observation, Suicide Precautions per unit protocol, Encourage participation in unit milieu, Group Therapy, Monitor sleep, Monitor appetite Risks, benefits, side effects, alternatives discussed w/pt: Yes Patient agreeable to treatment: Yes Consult Discharge Plan - Plan Referrals: NONE,PCP [Primary Care Provider] - Psychiatry Exam - Constitutional Vitals: Temp Pulse Resp BP Pulse Ox 98.1 F 63 16 105/65 97 11/12/18 21:00 11/12/18 21:00 11/12/18 21:00 11/12/18 21:00 11/12/18 21:00 General appearance: age & developmentally appropriate, well-groomed, well- nourished - Musculoskeletal Gait: normal Station: relaxed Strength & Tone: normal for patient - Psychiatric Patient Orientation: Yes Person, Yes Time, Yes Place Level of alertness: Alert Behavior: calm, cooperative Psychomotor activity: Normal Eye Contact: Maintains Eye Contact Mood Description: Depressed Affect description: congruent with mood Speech Volume: Normal Speech pattern: normal rate, normal rhythm, normal tone, fluent, spontaneous Language & Vocabulary: consistent with education Thought Process: Linear Thought Content: Yes Suicidal ideation, No Homicidal ideation, No Overt delusions Perceptual Disturbances: No Auditory hallucinations, No Visual hallucinations Attention Span Ability: Capable of Focused Attention Memory Description: Grossly Intact Patient Reliability: Reliable Historian Fund of knowledge: Yes abstraction ability, Yes aware of current events Intelligence Estimate: Average Judgment: Fair Insight: Partial
[2018-11-13] MEDS: cephALEXin 500 MG CAPSULE PO SCH ×2 (10:00→20:54)
[2018-11-13] MEDS: Ibuprofen 400 MG TABLET PO PRN (21:00)
[2018-11-14] MEDS: cephALEXin 500 MG CAPSULE PO SCH (08:11)
[2018-11-14] MEDS: Gabapentin 300 MG CAPSULE PO SCH ×3 (08:12→20:06)
[2018-11-14] MEDS: *HR* Buprenorphine HCl 8 MG TAB.SUBL SL SCH ×2 (08:12→20:09)
[2018-11-14] MEDS: Nicotine 21 MG PATCH.TD24 TD SCH (08:13)
--- NOTE | 2018-11-14 10:07 | Psychiatry Progress Note ---
Date of Encounter: 11/14/18 Time of Encounter: 09:45 Subjective Interval history: Ms. Go is a 33-year-old female who was admitted for suicidal ideation and drug relapse. During her inpatient stay she has mostly been retreating to her room, but did attend some groups yesterday. Today she states that her mood is "a little bit better." She does state that she "did not sleep very good" and did experience nightmares, but she did sleep with her nicotine patch on again. She states that her appetite is "better" and she thinks that her medications are causing her to be tired. She rates her depression as 6/10 on a 0-10 scale with 0 being none and 10 being the worst. She rates her anxiety as 10/10 on the same scale; she attributes her high anxiety level to her upcoming discharge. She states that the pain in her hands is "better." She denies auditory and visual hallucinations. She denies homicidal/ ideation. She currently denies suicidal ideation, and states that if she starts to feel suited suicidal ideation at discharge she will call somebody. She does state that she does not "feel completely safe" to go home today. She states that her mother is coming to the patient's house tomorrow and will be staying with her for a while, and she will feel safe once her mom is at home with her. She also follows up as an outpatient with [facility]. Patient did mention that she did not take her buspirone this morning. She reports that buspirone makes her tired, so she did not take it so that she could attend groups today. She also admitted that when she is at home, she does not take her buspirone regularly. She only takes it when she "needs it." Review of Systems Psychiatric: Reports: depression, anxiety, abnormal sleep pattern, change in appetite, hopelessness. Denies: suicidal ideation (Patient responded with "No. I don't know." when asked about suicidal thoughts.), homicidal ideation, auditory hallucinations, visual hallucinations Results - Vital Signs Vital Signs: Temp Pulse Resp BP Pulse Ox 98.5 F 61 16 105/68 98 11/14/18 09:00 11/14/18 09:00 11/14/18 09:00 11/14/18 09:00 11/14/18 09:00 Assessment and Plan (1) Depression Current visit: Yes Status: Acute Plan: Continue hospitalization, Close observation, Suicide Precautions per unit protocol, Encourage participation in unit milieu, Group Therapy, Monitor sleep, Monitor appetite Additional Plan: 1. Patient reports that she does not take buspirone regularly at home and she did not take it this morning. She was experiencing anxiety, so a now dose of buspirone was ordered. She was educated on the importance of taking this med ication scheduled at home and not as needed. 2. Will continue patient's other outpatient medications, as well. These include Lexapro 20 mg and hydroxyzine 25 mg TID PRN. We will also continue Suboxone and gabapentin. 3. Will monitor while on the unit. 4. Continue suicide precautions at this time. 5. Anticipate discharge tomorrow. 6. Encourage group participation on the unit. Patient was seen by this provider precipitating in groups this morning. 7. Will work with social work to coordinate outpatient psychiatric care upon discharge. Patient currently follows with [facility] as an outpatient and plans to follow up with them at discharge. Risks, benefits, side effects, alternatives discussed w/pt: Yes Patient agreeable to treatment: Yes Qualifiers: Depression Type: unspecified Qualified Code(s): F32.9 - Major depressive disorder, single episode, unspecified (2) Bipolar disorder Current visit: Yes Status: Chronic Plan: Continue hospitalization, Close observation, Suicide Precautions per unit protocol, Encourage participation in unit milieu, Group Therapy, Monitor sleep, Monitor appetite Additional Plan: 1. Continue current dose of gabapentin. Risks, benefits, side effects, alternatives discussed w/pt: Yes Patient agreeable to treatment: Yes Qualifiers: Active/Remission status: currently active Current bipolar episode type: depressed Current episode severity: severe Psychotic features: without psychotic features Qualified Code(s): F31.4 - Bipolar disorder, current episode depressed, severe, without psychotic features (3) UTI (urinary tract infection) Current visit: Yes Status: Resolved Additional Plan: 1. Patient received her last dose of Keflex this morning. Not complaining of any related symptoms. Risks, benefits, side effects, alternatives discussed w/pt: Yes Patient agreeable to treatment: Yes Qualifiers: Urinary tract infection type: acute cystitis Hematuria presence: without hematuria Qualified Code(s): N30.00 - Acute cystitis without hematuria (4) Opiate dependence Current visit: Yes Status: Chronic Additional Plan: 1. Patient currently takes Suboxone BID from her psychiatrist. Continue while on the unit. 2. Recommend the patient continue to follow with treatment facility upon discharge. Risks, benefits, side effects, alternatives discussed w/pt: Yes Patient agreeable to treatment: Yes Qualifiers: Substance use status: uncomplicated Qualified Code(s): F11.20 - Opioid dependence, uncomplicated (5) Bilateral hand swelling Current visit: Yes Status: Chronic Additional Plan: 1. Patient is experiencing bilateral painful hand swelling. She reports that it is intermittently chronic, and follows up with someone as an outpatient. 2. Continue current dose of gabapentin. Risks, benefits, side effects, alternatives discussed w/pt: Yes Patient agreeable to treatment: Yes Consult Discharge Plan - Plan Referrals: NONE,PCP [Primary Care Provider] - - Attending Attestation I examined this patient and my medical decision-making was reviewed with the Resident Physician. I agree with the documented findings, disposition and treatment plan as described except to the extent set forth below. Client continues to improve. SI continues to be fleeting but has a plan for how she will cope with suicidal thoughts after discharge. Client reports she feels safe going home tomorrow. Her mother has agreed to come and stay with her. Client is linked with the [facility] and goes to outpatient [facility] treatment four days a week. Also has follow up with [facility] on Saturday. Discussed Buspar today as she refused it this morning. Client was under the impression that this medication was more of a prn and she was only supposed to take it when she felt anxious. Educated her on how Buspar works and she plans to take it scheduled from now on. Psychiatry Exam - Constitutional Vitals: Temp Pulse Resp BP Pulse Ox 98.5 F 61 16 105/68 98 11/14/18 09:00 11/14/18 09:00 11/14/18 09:00 11/14/18 09:00 11/14/18 09:00 General appearance: age & developmentally appropriate, average Additional observations: Patient was lying in bed when this provider entered her room. She sat up upon my arrival. - Musculoskeletal Gait: normal Station: relaxed Strength & Tone: normal for patient - Psychiatric Patient Orientation: Yes Person, Yes Time, Yes Place, Yes Circumstance Level of alertness: Alert Behavior: calm, cooperative Psychomotor activity: Normal Eye Contact: Maintains Eye Contact Mood Description: Depressed Patient description of mood: "a little bit better" Affect description: congruent with mood Speech Volume: Normal Speech pattern: normal rate, normal rhythm, normal tone, appropriate, clear, coherent Language & Vocabulary: consistent with education Thought Process: Intact, Logical, Linear, Goal Oriented Thought Content: Yes Intact, No Suicidal ideation, No Homicidal ideation Perceptual Disturbances: No Reacting to internal stimuli, No Auditory hallucinations, No Visual hallucinations Attention Span Ability: Capable of Focused Attention Memory Description: Grossly Intact Patient Reliability: Reliable Historian Fund of knowledge: Yes average Intelligence Estimate: Average Judgment: Fair Insight: Full
[2018-11-14] MEDS: Ibuprofen 400 MG TABLET PO PRN (20:09)
[2018-11-15] MEDS: Gabapentin 300 MG CAPSULE PO SCH (08:29)
[2018-11-15] MEDS: *HR* Buprenorphine HCl 8 MG TAB.SUBL SL SCH (08:30)
--- NOTE | 2018-11-15 09:03 | Discharge Summary ---
Date of Encounter: 11/15/18 Time of Encounter: 09:01 Diagnosis - Discharge Diagnosis (1) Depression Status: Acute Qualifiers: Depression Type: unspecified Qualified Code(s): F32.9 - Major depressive disorder, single episode, unspecified (2) Bipolar disorder Status: Chronic Qualifiers: Active/Remission status: currently active Current bipolar episode type: depressed Current episode severity: severe Psychotic features: without psychotic features Qualified Code(s): F31.4 - Bipolar disorder, current episode depressed, severe, without psychotic features (3) UTI (urinary tract infection) Status: Resolved Qualifiers: Urinary tract infection type: acute cystitis Hematuria presence: without hematuria Qualified Code(s): N30.00 - Acute cystitis without hematuria (4) Opiate dependence Status: Chronic Qualifiers: Substance use status: uncomplicated Qualified Code(s): F11.20 - Opioid dependence, uncomplicated (5) Bilateral hand swelling Status: Chronic Medications - Discharge Medications Prescriptions: Buspirone HCl [Buspar] 10 mg PO BID #14 tablet Escitalopram [Lexapro] 20 mg PO DAILY #7 tablet Gabapentin [Neurontin] 300 mg PO TID #21 capsule Buprenorphine HCl/Naloxone HCl [Suboxone 8 mg-2 mg Sl Film] 2 each SL DAILY 11/10/18 [History] HydrOXYzine 5 - 10 mg PO DAILY PRN 11/10/18 [History] Buspirone HCl [Buspar] 10 mg PO BID #14 tablet 11/15/18 [Rx] Escitalopram [Lexapro] 20 mg PO DAILY #7 tablet 11/15/18 [Rx] Gabapentin [Neurontin] 300 mg PO TID #21 capsule 11/15/18 [Rx] Allergy/AdvReac Type Severity Reaction Status Date / Time No Known Allergies Allergy Verified 06/04/18 17:35 Results Procedures and tests throughout hospitalization: Completed Lab Orders Category Date Time Status Acetaminophen Stat Lab 11/10/18 20:06 Completed Basic Metabolic Panel Stat Lab 11/10/18 20:06 Completed Complete Blood Count [HEME] Stat Lab 11/10/18 20:06 Completed Drug Screen, Urine [UCHEM] Stat Lab 11/10/18 19:37 Completed Ethanol Stat Lab 11/10/18 20:06 Completed Test Result, Urine [URIN] Stat Lab 11/10/18 19:00 Completed Salicylate Stat Lab 11/10/18 20:06 Completed Urinalysis reflex Microscopic [URIN] Stat Lab 11/10/18 19:37 Completed Provider Date of admission: 11/10/18 23:11 Primary care physician: PCP NONE Discharging clinician: Alma Mccoy Psychiatry Exam - Constitutional Vitals: Temp Pulse Resp BP Pulse Ox 98.3 F 56 16 103/66 100 11/14/18 19:42 11/14/18 19:42 11/14/18 19:42 11/14/18 19:42 11/14/18 19:42 General appearance: age & developmentally appropriate, well-groomed, well- nourished - Musculoskeletal Gait: normal Station: relaxed Strength & Tone: normal for patient - Psychiatric Patient Orientation: Yes Person, Yes Time, Yes Place Level of alertness: Alert Behavior: calm, cooperative Psychomotor activity: Normal Eye Contact: Maintains Eye Contact Mood Description: Euthymic/stable Affect description: congruent with mood, full range Speech Volume: Normal Speech pattern: normal rate, normal rhythm, normal tone, fluent, spontaneous Language & Vocabulary: consistent with education Thought Process: Linear, Goal Oriented Thought Content: No Suicidal ideation, No Homicidal ideation, No Overt delusions Perceptual Disturbances: No Auditory hallucinations, No Visual hallucinations Attention Span Ability: Capable of Focused Attention Memory Description: Grossly Intact Patient Reliability: Reliable Historian Fund of knowledge: Yes abstraction ability, Yes aware of current events Intelligence Estimate: Average Judgment: Fair Insight: Partial Hospital Course Hospital course: Ms. Go is a 33 year old female who was admitted for SI after relapsing on drugs. She was restarted on her home meds which she had stopped prior to admission with good clinical response. Today she is bright, reactive, and future oriented. She is denying SI, intent, or plan. She has a plan to call her supports from the [facility] if SI returns after discharge. Her mother intends to pick her up and stay with her this weekend. Client has follow up with [facility] on Saturday and currently goes to [facility] for substance abuse treatment four days a week. Looks much better and feels safe for discharge. Total time spent with client greater than 30 minutes. Patient was educated of her diagnosis and the risks, benefits, and side effects of this treatment and alternative treatment options and was monitored for responsiveness and side effects. Mood, anxiety, sleep, appetite, and interest improved, as did future orientation. Self-harm thoughts subsided, thinking cleared, psychosis resolved, and mood stabilized. Patient was able to attend both individual and group therapy sessions as well as meeting with the psychiatrist daily and urged to discuss any medication or treatment issues or other concerns. The patient was educated primarily by verbal means about their diagnosis and manifestations in their life. The option for treatment including group and individual therapy programming was offered to the patient in the use of medications with all their potential risks, benefits, and side effects were discussed with the patient at length. The patient was given the opportunity to ask questions and was noted to participate in the treatment in the planning process. The patient felt ready and eager to be discharged from the inpatient psychiatric unit to continue on with treatment as an outpatient. The patient agreed that she was safe for this disposition. The patient was considered to be able to participate in informed consent and decision making with respect to medical, legal, and financial issues of the time of discharge. At the time of discharge the patient adamantly denied any concerns for lethality including suicidal or homicidal thoughts ideations or plans and was future oriented toward ongoing mental health care, medical follow-up and sobriety. - Time Spent with Patient Total time spent providing and/or coordinating discharge services: Assessment and Plan - Patient/Caregiver Discharge Instructions Activity: resume usual activities as tolerated Diet: regular diet - Follow up Plan Follow up with: NONE,PCP [Primary Care Provider] - Functional capacity at discharge: independent ambulation Overall status at discharge: Stable Disposition: Home, Self-Care Quality - Multiple Antipsychotics Patient discharged on 2 or more antipsychotic medications: No Procedures - Procedures Procedures: Medication Management, Crisis Stabilization, Supportive Therapy, Group Therapy
[2018-11-15 09:12] VITALS: BP 107/72
[2018-11-15] MEDS: Nicotine 21 MG PATCH.TD24 TD SCH (09:47)
== END 2018-11-15 10:00 | disposition home or self-care (01) | DRG 753 ==
LOC: EMEROOARM 18:45 → 1ANU 23:11
PROVIDERS: ADMIT Psychiatry & Neurology Psychiatry; ATTEND Psychiatry & Neurology Psychiatry